=== PATIENT | female | born 1945 | race Caucasian/White ===

== ENCOUNTER → 2016-08-04 | Day surgery (SDC) | payer OTHER ==
[~2016-08-04] MED LIST: ALEVE; AMLODIPINE BESYL5 MG PO; BENTYL10 MG PO; BENTYL20 MG; BENTYL20 MG PO; BOT PO; CALCIUM 500 +1 EACH PO; CALTRATE PLUS T1 TAB PO; CELEXA20 MG; CELEXA20 MG PO; CENTRUM SILVER PO; CIPRO PO; CIPROFLOXA PO; COLESTID PO; EXFORGE HCT 101 EAC2 PO; FERREX 150 FOR1 EACH PO; FLAGYL250 M1 PO; HEARTBURN150 MG PO; HYDROCODON-ACE1 EAC7 PO; LEVOTHYROXINE112 MCG PO; LIPITOR PO; LIPITOR20 MG PO; LOTREL 2.5/10 M1 CAP PO; MEGACE ORA400 MG/10 DOB; MIRAPEX 0.25 MG; MIRAPEX0.25 MG DOB; MIRAPEX0.25 MG PO; MULTI-VITAMIN1 TAB PO; NASAL SPRAY30 M3; PHOSLO667 MG PO; PRAMIPEXOLE D0.25 MG PO; PRILOSEC PO; PROBIOTIC1 EAC3 PO; SYNTHROID PO; SYNTHROID88 MCG PO; TALWIN NX TABLE1 TAB PO; TYLENOL PM EX-S1 TA4; ZANTAC150 M1 PO; ZYRTEC PO; ZYRTEC10 M2 PO
--- NOTE | ~2016-08-04 | OR ---
Unit #: [id number] #: [id number] Patient: YANETH FARMER [id number] [address] [address] [id number] O MR#: [id number] NAME: YANETH FARMER. ROOM: Date of Procedure: 08/04/2016 Admission Date: 08/04/2016 Surgeon: Tyrell Bishop M.D. : 1945 Attending Physician: Tyrell Bishop M.D. Referring Physician: Tyrell Bishop M.D. Primary Care Physician: Raz Germain M.D. OPERATIVE REPORT PREOPERATIVE DIAGNOSES 1. Diarrhea. 2. Abdominal pain. 3. Recent episode of diverticulitis. POSTOPERATIVE DIAGNOSES 1. Diarrhea. 2. Abdominal pain. 3. Recent episode of diverticulitis. PROCEDURES PERFORMED 1. Esophagogastroduodenoscopy. 2. Biopsy of duodenum for pathology and celiac disease testing. 3. Biopsy of antrum for Helicobacter pylori testing. 4. Colonoscopy to cecum. 5. Multiple random biopsies of colon. ANESTHESIA Monitored anesthesia care. FINDINGS The patient was found on upper endoscopy to have mild gastritis. The patient was found on colonoscopy to have moderate sigmoid diverticulosis. Internal and external hemorrhoids were found. Multiple random biopsies of the colon were performed. SPECIMENS Sent to pathology. COMPLICATIONS None apparent. CONDITION The patient tolerated the procedure well. INDICATIONS FOR PROCEDURE The patient is a 70-year-old white female, who presents at this time with persistent diarrhea. She was also recently hospitalized at [facility] with diverticulitis. She presents at this time for evaluation by upper and lower endoscopy. DESCRIPTION OF PROCEDURE Unit #: [id number] #: [id number] Patient: YANETH FARMER After obtaining informed consent, the patient was brought to the endoscopy suite and after adequate monitored anesthesia care, had the endoscope placed through the mouth into the upper esophagus under direct vision. It was advanced to the second portion of the duodenum without difficulty with the lumen always in view. The second and third portion of the duodenum were normal. A biopsy was obtained for celiac disease testing and pathology. There was good hemostasis. The duodenal bulb was normal. The pylorus opened normally. There was some mild distal gastritis present in the antrum and a biopsy was obtained from the antrum for Helicobacter pylori testing. On retroflexing back to the GE junction, no abnormalities were found in the proximal third, middle third, or incisura. On pulling back above the GE junction, there was no stenosis, stricture, or neoplasm seen. There was no significant esophagitis. The remaining portion of the esophagus was within normal limits. Laryngeal structures were grossly normal as viewed from above. At this point in time, the colonoscope was placed through the anus and slowly advanced to the level of the cecum without difficulty with the lumen always in view. The cecum was normal as was the ileocecal valve. The ascending colon was normal as was the hepatic flexure, transverse colon, splenic flexure, and descending colon. The sigmoid colon had moderate diverticular disease present. There was no acute inflammation. Multiple random biopsies were obtained throughout the colon for pathologic evaluation. There was good hemostasis at the biopsy sites. The rectosigmoid and rectum were all within normal limits. On retroflexing in the rectum to the anorectal junction, there was some internal hemorrhoids present and on pulling back through the anal canal, external hemorrhoids were present as well. The patient tolerated the procedure well and went from the endoscopy suite to the recovery area in stable condition. RECOMMENDATIONS Gastroesophageal reflux sheet given. Diverticular sheet given. High-fiber diet, lots of liquids, tucks or wipes p.r.n. Call Tuesday for pathology. Dictated by... Mariama Madden/migue TD: 08/05/2016 01:27 JOB #: [id number] CC: [facility] OPERATIVE REPORT Page 1 of 1 X Tyrell Bishop MD X PROCEDURE OPERATIVE NOTE
== END | disposition home or self-care (01) ==
LOC: COPS 08:46
DX: K29.80 Duodenitis without bleeding (principal); K52.9 Noninfective gastroenteritis and colitis, unspecified; K29.70 Gastritis, unspecified, without bleeding; K57.30 Diverticulosis of large intestine without perforation or abscess without bleeding; K64.8 Other hemorrhoids; K64.4 Residual hemorrhoidal skin tags; E03.9 Hypothyroidism, unspecified; N18.4 Chronic kidney disease, stage 4 (severe); K21.9 Gastro-esophageal reflux disease without esophagitis; R01.1 Cardiac murmur, unspecified; M19.90 Unspecified osteoarthritis, unspecified site; I10 Essential (primary) hypertension; G43.909 Migraine, unspecified, not intractable, without status migrainosus; G25.81 Restless legs syndrome; E78.5 Hyperlipidemia, unspecified; G47.00 Insomnia, unspecified; Z98.1 Arthrodesis status; Z90.49 Acquired absence of other specified parts of digestive tract; Z88.8 Allergy status to other drugs, medicaments and biological substances; Z86.010 Personal history of colon polyps; Z87.19 Personal history of other diseases of the digestive system; Z87.440 Personal history of urinary (tract) infections; Z88.1 Allergy status to other antibiotic agents; Z88.2 Allergy status to sulfonamides; Z79.899 Other long term (current) drug therapy; Z98.51 Tubal ligation status; Z87.891 Personal history of nicotine dependence
CPT/HCPCS: 87077; 88305; J2250

== ENCOUNTER → 2016-11-25 | Outpatient (CLI) | payer OTHER | END | disposition home or self-care (01) | LOC: CLAB 13:55 | DX: K52.9 Noninfective gastroenteritis and colitis, unspecified (principal) | CPT/HCPCS: 36415; 83516 ==